=== PATIENT | male | born 1945 | race Caucasian/White ===

== ENCOUNTER 2017-07-15 08:40 | Day surgery (SDC) | payer MEDICARE, OTHER ==
[~2017-07-15 08:40] MED LIST: Sodium Chloride 0.9% 10 ML Syringe FLUSH PRN
[2017-07-15] MEDS ORDERED: Propofol 200 MG/20 ML SDV IV ONE (11:20)
[2017-07-15 12:45] VITALS: BP 138/66
--- NOTE | 2017-07-16 07:38 | OR ---
DATE OF OPERATION: 07/15/2017 SURGEON: Corwin De La Torre MD PREOPERATIVE DIAGNOSIS: Cataract, left eye. POSTOPERATIVE DIAGNOSIS: Cataract, left eye. PROCEDURES: Phacoemulsification of cataract left eye with the placement of an Borrero, model ZCB00, 24.0 diopter, foldable, posterior chamber intraocular lens. BREEDING MANAGER: None. DESCRIPTION OF PROCEDURE: Peribulbar anesthetic was performed using a mixture of 2% lidocaine with Wydase. The patient was prepped and draped in the usual fashion. A 3 mm fornix based conjunctival flap was performed at the 7 o'clock position. Hemostasis was obtained using diathermy, and a 2.8 mm grooved near clear corneal incision was then made. A stab incision was made into the anterior chamber at the 12 o'clock position and a second stab wound incision was made underlying the grooved near clear corneal incision. Viscoat was instilled into the anterior chamber, and a continuous tear capsulotomy was performed. Hydrodissection was accomplished with balanced salt solution, and the nucleus was removed in a divide and conquer fashion. The remaining cortical material was removed with the irrigation and aspiration unit. Viscoat was instilled into the anterior chamber, and an Borrero, model ZCB00, 24.0 diopter, foldable, posterior chamber intraocular lens was placed into the capsular bag, the haptics being positioned at the 1 and 7 o'clock positions. The residual Viscoat was removed from the anterior chamber and the anterior chamber reformed with balanced salt solution. The wound was checked and noted to be watertight. The conjunctiva was secured in its original position with one interrupted suture of 8-0 Vicryl. Alphagan and Maxitrol Ointment were then placed into the patient's eye. The patient tolerated the procedure well and it was without complication. Elapsed phacoemulsification time was 18.9 seconds. Postoperative instructions as related to activities, as well as medications, were reviewed with the patient. The patient was instructed to return to see me on the day following surgery for the first postoperative check. The patient was also instructed to contact me prior to that time if the patient were to have any problems. /[id number] DEG/MODL CC: JOCELINE SKAGGS MD [facility]
== END 2017-07-15 12:45 ==
LOC: FB.SDS 08:40
PROVIDERS: ATTEND Ophthalmology
DX: H26.9 Unspecified cataract (principal); I10 Essential (primary) hypertension; K21.9 Gastro-esophageal reflux disease without esophagitis; E78.5 Hyperlipidemia, unspecified; J44.9 Chronic obstructive pulmonary disease, unspecified; N40.0 Benign prostatic hyperplasia without lower urinary tract symptoms; Z98.890 Other specified postprocedural states; Z79.82 Long term (current) use of aspirin; Z79.899 Other long term (current) drug therapy; Z88.2 Allergy status to sulfonamides; Z87.891 Personal history of nicotine dependence
CPT/HCPCS: 00142; 66984; A4217; C1780; J2704; J7050